=== PATIENT | female | born 1930 | race African-American/Black ===

== ENCOUNTER 2018-08-11 18:40 | Emergency (ER) | payer OTHER ==
[2018-08-11 19:03] VITALS: BP 157/69; PULSE 63; TEMP 98.5; BMI 27.2
--- NOTE | 2018-08-11 20:33 | PDOC ---
History of Present Illness - General Chief Complaint: Injury Stated Complaint: Injury Time Seen by Provider: 08/11/18 19:36 - History of Present Illness Initial Comments: 08/11/18 20:34 88 F presenting from [facility] after [place]pping and falling. Per [facility] staff, pt [place] and [place]. Pt denies any complaints at this time. Does not recall if she hit her head or not. Pt denies neck pain, denies weakness/numbness in arms or legs. Denies any recent CP/SOB/palpitations/ lightheadedness. Past History - Past Medical History Allergies/Adverse Reactions: Allergies Allergy/AdvReac Type Severity Reaction Status Date / Time No Known Allergies Allergy Verified 08/11/18 18:51 Home Medications: Ambulatory Orders Cephalexin Monohydrate [Keflex -] 500 mg PO BID #14 capsule 08/11/18 CVA: No COPD: No Dementia: Yes HTN: Yes - Suicide/Smoking/Psychosocial Hx Smoking History: Never smoked Have you smoked in the past 12 months: No Information on smoking cessation initiated: No Hx Alcohol Use: No Drug/Substance Use Hx: No Review of Systems - Review of Systems Comments:: 08/11/18 20:36 GENERAL/CONSTITUTIONAL: No fever or chills. No weakness. HEAD, EYES, EARS, NOSE AND THROAT: No change in vision. No ear pain or discharge. No sore throat. CARDIOVASCULAR: No chest pain or shortness of breath. RESPIRATORY: No cough, wheezing, or hemoptysis. GASTROINTESTINAL: No nausea, vomiting, diarrhea or constipation. GENITOURINARY: No dysuria, frequency, or change in urination. MUSCULOSKELETAL: No joint or muscle swelling or pain. No neck or back pain. SKIN: No rash NEUROLOGIC: No headache, vertigo, loss of consciousness, or change in strength/ sensation. ENDOCRINE: No increased thirst. No abnormal weight change. HEMATOLOGIC/LYMPHATIC: No anemia, easy bleeding, or history of blood clots. ALLERGIC/IMMUNOLOGIC: No hives or skin allergy. *Physical Exam - Vital Signs Last Vital Signs Temp Pulse Resp BP Pulse Ox 98.5 F 63 18 157/69 98 08/11/18 18:51 08/11/18 18:51 08/11/18 18:51 08/11/18 18:51 08/11/18 18:51 - Physical Exam Comments: 08/11/18 20:36 GENERAL: Awake, alert, in no acute distress. HEAD: No signs of trauma EYES: PERRLA, EOMI, sclera anicteric, conjunctiva clear ENT: Auricles normal inspection, hearing grossly normal, nares patent, oropharynx clear without exudates. Moist mucosa NECK: Nontender, no stepoffs, Normal ROM, supple, no lymphadenopathy, JVD, or masses LUNGS: Breath sounds equal, clear to auscultation bilaterally. No wheezes, and no crackles HEART: Regular rate and rhythm, normal S1 and S2, no murmurs, rubs or gallops ABDOMEN: Soft, nontender, normoactive bowel sounds. No guarding, no rebound. No masses EXTREMITIES: + small abrasion to R elbow without bony tenderness, + mild erythema and swelling of skin overlying distal R radius, no bony tenderness, Normal range of motion, No clubbing or cyanosis. No cords, erythema, or tenderness NEUROLOGICAL: Cranial nerves II through XII intact. 5/5 strength and sensation in all extremities, Normal speech, normal gait, normal cerebellar function SKIN: Warm, Dry, normal turgor, no rashes or lesions noted. ED Treatment Course - RADIOLOGY Radiology Studies Ordered: Category Date Time Status CERVICAL SPINE CT W/O CONTR [CT] Stat CT Scan 08/11/18 20:[address] WITHOUT CONTRAST [CT] Stat CT Scan 08/11/18 20:03 Ordered ELBOW-RIGHT [RAD] Stat Radiology 08/11/18 20:03 Ordered WRIST- RIGHT [RAD] Stat Radiology 08/11/18 20:03 Ordered Medical Decision Making - Medical Decision Making 08/11/18 20:38 88 F with mechanical fall at [place]. Pt with no complaints at this time and stable vitals. On exam, she is noted to have mild redness and swelling to R wrist. More suspicious for cellulitis than fracture or traumatic injury. - CT head - XR R wrist and elbow - Abx for cellulitis 08/11/18 22:28 CTs and XRs unremarkable Will DC with keflex for cellulitis Pt is well appearing, with normal vitals. Clinically stable for DC at this time. I discussed the physical exam findings, ancillary test results and final diagnoses with the patient. I answered all of the patient's questions. The patient was satisfied with the care received and felt comfortable with the discharge plan and treatment plan. The patient agrees to follow up with the primary care physician within 24-72 hours. *DC/Admit/Observation/Transfer Diagnosis at time of Disposition: Fall, Cellulitis - Discharge Dispostion Disposition: HOME - Referrals Referrals: Ryan Callahan [Primary Care Provider] - - Patient Instructions Printed Discharge Instructions: How to Prevent Falls, DI for Cellulitis -- Adult Additional Instructions: You may have a skin infection on your R wrist. Take the Keflex 500mg twice daily for 7 days to treat it. If you experience worsening swelling, pain, redness, fevers, additional falls, or any other concerning symptoms, return to the ER immediately. Otherwise, follow up with your primary doctor within 48 hours. - Post Discharge Activity - Attestations Physician Attestion: 08/11/18 22:40 I, Dr. Zuhair Man MD, attest that this document has been prepared under my direction and personally reviewed by me in its entirety. I further attest, that it accurately reflects all work, treatment, procedures and medical decision -making performed by me.
[2018-08-11] MEDS ORDERED: CEPHALEXIN MONOHYDRATE 500 MG CAPSULE (UD) PO ONE (22:29)
[2018-08-11] MEDS ORDERED: CEPHALEXIN MONOHYDRATE 500 MG CAPSULE (UD) ONE (22:38)
== END 2018-08-12 01:13 | disposition home or self-care (01) ==
LOC: JER 18:40
DX: L03.113 Cellulitis of right upper limb (principal); S50.311A Abrasion of right elbow, initial encounter; W18.39XA Other fall on same level, initial encounter; Y93.01 Activity, walking, marching and hiking; Y92.128 Other place in nursing home as the place of occurrence of the external cause; Y99.8 Other external cause status; F03.90 Unspecified dementia, unspecified severity, without behavioral disturbance, psychotic disturbance, mood disturbance, and anxiety
CPT/HCPCS: 70450-TC; 72125-TC; 73070-TC-RT-FY; 73110-TC-RT-FY; 99281-25

== ENCOUNTER 2018-08-19 15:00 | Emergency (ER) | payer OTHER ==
[2018-08-19 15:35] VITALS: BMI 29.9
--- NOTE | 2018-08-19 15:58 | PDOC ---
History of Present Illness - General Chief Complaint: Head/Neck problem Stated Complaint: FALL Time Seen by Provider: 08/19/18 15:27 History Source: EMS, [facility] Records Exam Limitations: Dementia - History of Present Illness Initial Comments: 08/19/18 15:55 CHIEF COMPLAINT: Fall HISTORY OF PRESENT ILLNESS: This is an 88-year-old female with a history of hypothyroidism, hypertension, depression, and dementia, who is a resident of a [facility]. She is brought to the ER today after she slipped and fell, striking her head on the wall. Follows witnessed and there is no loss of consciousness. REVIEW OF SYSTEMS: Patient is unable to participate secondary to dementia. She does deny any pain. PHYSICAL EXAM: GENERAL: The patient is awake, alert, follows commands, and is oriented to her name. HEAD: Normal with no signs of trauma. ENT: Pupils equal, round and reactive to light, extraocular movements intact, sclera anicteric, conjunctiva clear. Neck supple. LUNGS: Clear to auscultation bilaterally. Normal excursion. No respiratory distress or use of accessory muscles. CV: RRR, S1/S2, no MRG. Cap refill < 2 sec. ABDOMEN: Soft, non-distended, non-tender. EXTREMITIES: Normal range of motion, no edema. NEUROLOGICAL: Normal speech. CN II-XII grossly intact. No midline vertebral tenderness. PSYCH: Normal mood, normal affect. SKIN: Warm, dry, normal turgor, no rashes or lesions noted. Past History - Past Medical History Allergies/Adverse Reactions: Allergies Allergy/AdvReac Type Severity Reaction Status Date / Time No Known Allergies Allergy Verified 08/19/18 15:03 Home Medications: Ambulatory Orders Aspirin [ASA -] 81 mg PO DAILY 08/19/18 Citalopram Hydrobromide [Citalopram HBr] 20 mg PO DAILY 08/19/18 Levothyroxine [Synthroid -] 50 mcg PO DAILY 08/19/18 Memantine HCl [Namenda Xr] 7 mg PO DAILY 08/19/18 Metoprolol Succinate [Toprol Xl] 50 mg PO DAILY 08/19/18 CVA: No COPD: No Dementia: Yes HTN: Yes - Immunization History Immunization Up to Date: Yes - Suicide/Smoking/Psychosocial Hx Smoking History: Never smoked Have you smoked in the past 12 months: No Information on smoking cessation initiated: No Hx Alcohol Use: No Drug/Substance Use Hx: No Substance Use Type: None *Physical Exam - Vital Signs Last Vital Signs Temp Pulse Resp BP Pulse Ox 98.0 F 54 L 17 122/63 99 08/19/18 15:28 08/19/18 15:28 08/19/18 15:28 08/19/18 15:28 08/19/18 15:28 ED Treatment Course - RADIOLOGY Radiology Studies Ordered: Category Date Time Status CERVICAL SPINE CT W/O CONTR [CT] Stat CT Scan 08/19/18 15:[address] WITHOUT CONTRAST [CT] Stat CT Scan 08/19/18 15:53 Ordered Medical Decision Making - Medical Decision Making 08/19/18 15:58 A/P: Elderly female s/p fall with head trauma, without loss of consciousness. -Head CT -Cervical spine CT -Reevaluate *DC/Admit/Observation/Transfer Diagnosis at time of Disposition: Fall Qualifiers: Encounter type: initial encounter Qualified Code(s): W19.XXXA - Unspecified fall, initial encounter Head trauma Qualifiers: Encounter type: initial encounter Qualified Code(s): S09.90XA - Unspecified injury of head, initial encounter - Discharge Dispostion [facility]position[facility] Condition at time of disposition: Stable - Referrals Referrals: Ryan Callahan [Primary Care Provider] - - Patient Instructions Printed Discharge Instructions: DI for Closed Head Injury Additional Instructions: Ms. Pratt's CT scans of the head and neck did not show any injury. She does have a thyroid nodule and possible sinusitis, which should be followed up (reports enclosed). Please have her return for any new symptoms. - Post Discharge Activity
[2018-08-19 18:53] VITALS: BP 165/76; PULSE 68; TEMP 98.8
== END 2018-08-19 20:45 ==
LOC: JER 15:00
DX: S09.8XXA Other specified injuries of head, initial encounter (principal); W01.198A Fall on same level from slipping, tripping and stumbling with subsequent striking against other object, initial encounter; Y93.89 Activity, other specified; Y92.128 Other place in nursing home as the place of occurrence of the external cause; Y99.8 Other external cause status; I10 Essential (primary) hypertension; E03.9 Hypothyroidism, unspecified; F03.90 Unspecified dementia, unspecified severity, without behavioral disturbance, psychotic disturbance, mood disturbance, and anxiety; F32.9 Major depressive disorder, single episode, unspecified; Z79.82 Long term (current) use of aspirin
CPT/HCPCS: 70450-TC; 72125-TC; 99281-25